=== PATIENT | male | born 1965 | race Caucasian/White ===

== ENCOUNTER → 2018-11-18 | Outpatient (CLI) | payer OTHER ==
--- NOTE | 2018-11-18 11:40 | US ---
EXAMINATION TYPE: US venous doppler duplex LE RT DATE OF EXAM: 11/18/2018 11:26 AM COMPARISON: NONE CLINICAL HISTORY: R60.0 Localized edema RLE. SIDE PERFORMED: Right TECHNIQUE: The lower extremity deep venous system is examined utilizing real time linear array sonog narciso with graded compression, doppler sonography and color-flow sonography. VESSELS IMAGED: External Iliac Vein (EIV) Common Femoral Vein Deep Femoral Vein Greater Saphenous Vein * Femoral Vein Popliteal Vein Small Saphenous Vein * Proximal Calf Veins (* superficial vessels) Grayscale, color doppler, spectral doppler imaging performed of the deep veins of the right lower ext remity. There is normal flow, compressibility, vascular waveforms. Right Leg: Negative for DVT IMPRESSION: No sonographic evidence of deep venous thrombosis within the right lower extremity.
== END | disposition home or self-care (01) ==
LOC: RADUSWWP 10:51
PROVIDERS: ATTEND Family Medicine
DX: R60.0 Localized edema (principal)

== ENCOUNTER 2019-05-02 09:25 | Day surgery (SDC) | payer OTHER ==
[2019-04-28 16:30] VITALS: BMI 48.4
[~2019-05-02 09:25] MED LIST: LACTATED RINGERS 1,000 ML IV SCH; LIDOCAINE 1% 20 ML VIAL (10MG/ML) FOR IV START INTRADERMA PRN
[2019-05-02] MEDS ORDERED: PROPOFOL 10 MG/ML 20 ML VIAL IV ONE (10:22)
[2019-05-02 10:24] VITALS: RESP 16; TEMP 98
--- NOTE | 2019-05-02 11:01 | P.PCN ---
Date of Procedure: 05/02/19 Description of Procedure: BRIEF HISTORY: Patient is a 54-year-old male presenting for outpatient colonoscopy for screening for malignant neoplasm. He does report colonoscopy in the past with polypectomy. She does report colon cancer in his mother. Denies any change in bowel habits, blood per rectum or abdominal pain. PROCEDURE PERFORMED: Colonoscopy with polypectomy. PREOPERATIVE DIAGNOSIS: Screening for malignant neoplasm of the colon, last colonoscopy 5 years ago. ESTIMATED BLOOD LOSS: Minimal. IV sedation per Anesthesia. PROCEDURE: After informed consent was obtained, the patient, was brought into the endoscopy unit. IV sedation was administered by Anesthesia under continuous monitoring. Digital rectal examination was normal. Initially the Olympus CF-190 flexible video colonoscope was then inserted in the rectum, gradually advanced into the cecum without any difficulty. Careful examination was performed as the scope was gradually being withdrawn. Ileocecal valve and the appendiceal orifice were visualized and appeared normal. Prep was excellent. Mucosa of the cecum, ascending colon, transverse colon, descending colon, sigmoid colon, and rectum appeared normal. Diminutive 3 mm rectal polyp removed with cold snare polypectomy. Retroflexion was performed in the rectum and no lesions were seen. The patient tolerated the procedure well. IMPRESSION: 3 mm rectal polyp removed with cold snare. Otherwise normal-appearing colon from rectum to sigmoid. RECOMMENDATIONS: Findings of this examination were discussed with the patient in his . Okay to resume diet. Okay to resume medications. Would recommend repeat colonoscopy in 5 years given personal history of colon polyps and family history of colon cancer. Await pathology from polypectomy.
[2019-05-02 11:18] VITALS: BP 133/90; PULSE 93
== END 2019-05-02 11:33 | disposition home or self-care (01) ==
LOC: ORWHC2ENDO 09:25
PROVIDERS: ATTEND Internal Medicine
DX: Z12.11 Encounter for screening for malignant neoplasm of colon (principal); K62.1 Rectal polyp; Z80.0 Family history of malignant neoplasm of digestive organs; Z86.010 Personal history of colon polyps; I10 Essential (primary) hypertension; E78.5 Hyperlipidemia, unspecified; K21.9 Gastro-esophageal reflux disease without esophagitis; Z79.899 Other long term (current) drug therapy; Z98.890 Other specified postprocedural states
CPT/HCPCS: 88305; 45385; J2704

== ENCOUNTER → 2020-08-12 | Outpatient (CLI) | payer OTHER ==
--- NOTE | 2020-08-12 15:44 | XR ---
EXAMINATION TYPE: XR foot complete RT DATE OF EXAM: 08/12/2020 COMPARISON: NONE HISTORY: Heel pain for 3 weeks, no known injury. [id number] RT FOOT PAIN,PLANTAR FASCITIS. TECHNIQUE: AP, oblique, and lateral views of the right foot obtained. FINDINGS: No acute fracture. No acute dislocation. There is likely bony fusion of the medial cuneifor m and first metatarsal base. 7 mm plantar spur. Achilles enthesophyte with adjacent small well-cortic ated ossific density. Normal mineralization. No significant soft tissue swelling. IMPRESSION: 1. Likely bony fusion of the medial cuneiform and first metatarsal base. 2. Plantar spur. 3. Achilles enthesophyte.
== END | disposition home or self-care (01) ==
LOC: RADXRYALE 11:05
PROVIDERS: ATTEND Physician Assistant Medical
DX: M76.61 Achilles tendinitis, right leg (principal); M77.31 Calcaneal spur, right foot